=== PATIENT | female | born 1995 | race Caucasian/White ===

== ENCOUNTER → 2017-05-05 | Outpatient (CLI) | payer OTHER ==
[~2017-05-05] MED LIST: ALPR-429 PO; DESV50TA PO; ESCI10TA8 PO; ESCI20TA8 PO; FLUO40CA76 PO; LIT300CAP PO
[2017-05-05 11:43] LABS: PLATELET COUNT, AUTOMATED 302 K/uL (150-450)
== END ==
LOC: LAB 11:30
PROVIDERS: ATTEND Emergency Medicine
DX: R63.4 Abnormal weight loss (principal)
CPT/HCPCS: 36415; 82040; 82247; 82310; 82374; 82435; 82565; 82947; 84075; 84132; 84155; 84295; 84443; 84450; 84460; 84520; 85025